=== PATIENT | female | born 1980 | race Caucasian/White ===

== ENCOUNTER → 2017-01-18 | Outpatient (CLI) | payer OTHER ==
--- NOTE | 2017-01-18 16:24 | KCIC ---
Clinical Indication: Discrepancy in size and dates. Technique: Study is dated January 18, 2017. No comparison study is available. Transabdominal imaging was performed. No comparison for this is available. Findings: There is a single intrauterine gestation in vertex presentation. The placenta is posterior in location and extends within a centimeter of the internal cervical os. Cervix is long and closed. CARLOS measured 12.8 cm. This value is within normal limits. Biometrical data is as follows: BPD = 4.60 cm, with a corresponding gestational age of 19 weeks 6 days. HC = 17.49 cm, with a corresponding gestational age of 20 weeks 0 days. AC = 15.00 cm, with a corresponding gestational age of 20 weeks 2 days. FL = 3.29 cm, with a corresponding gestational age of 20 weeks 2 days. Ratio of head circumference to abdominal circumference is 1.17. Cephalic index is 75 percent. Overall, the estimated sonographic gestational age is 20 weeks 1 day for an estimated date of delivery of June 06, 2017. Estimated weight is 340 g. survey was performed. A four chamber heart is identified with positive cardiac activity. The estimated heart rate is 157 beats per minute. There is a three-vessel cord with cord insertion visualized. stomach and urinary bladder are identified. Both kidneys are seen. Limited intracranial evaluation is within normal limits. IMPRESSION: 1. Single intrauterine gestation with estimated sonographic gestational age of 20 weeks 1 day. 2. Low-lying placenta within a centimeter of the internal cervical os, recommend short-term follow-up to document migration away from the internal cervical os. Electronically signed by: Boo Trejo MD (01/18/2017 4:21 PM) [id number]
== END | disposition home or self-care (01) ==
LOC: KCIC US 15:18
PROVIDERS: ATTEND Obstetrics & Gynecology
DX: O09.522 Supervision of elderly multigravida, second trimester (principal); Z3A.20 20 weeks gestation of pregnancy
CPT/HCPCS: 76805

== ENCOUNTER → 2017-03-28 | Outpatient (CLI) | payer OTHER ==
--- NOTE | 2017-03-28 15:19 | KCIC ---
PREG MORE THAN OR EQ TO 14 WKS History: Low lying placenta Comparison: January 18, 2017 Findings: Multiple transabdominal sonographic images of the uterus are submitted. There is a single intrauterine fetus in breech presentation. Placental margin is somewhat difficult to visualize although appears to be low-lying more posteriorly, estimated at 1.1 cm from the cervical os on the transvaginal images. Placenta extends laterally. Amniotic fluid volume is within normal limits, estimated CARLOS 15.8 cm. movement was noted by the technologist. There is demonstrable cardiac activity 165 bpm. Cervix measured 3.6 cm. Biometry data are as follows: Biparietal diameter 7.67 cm corresponds with 30 weeks 5 days, 63rd percentile Head circumference 28.75 cm corresponds with 31 weeks 4 days, 62nd percentile Abdominal circumference 27.43 cm corresponds with 31 weeks 4 days, 85th percentile Femur length 5.94 cm corresponds with 31 weeks 0 days, 63rd percentile Estimated weight 1736 g +/- 237 g, 63rd percentile Adjusted ultrasound age 31 weeks 2 days with estimated delivery date of 05/28/2017. LMP age 30 weeks 0 days with estimated delivery date of 06/06/2017. Maternal adnexal structures are not demonstrated. Impression: 1. There is again low lying placenta with margin about 1 cm from the cervical os. 2. There is breech presentation of single intrauterine fetus. Electronically signed by: Og Sagastume MD (03/28/2017 3:15 PM) [facility] [email or web address]
== END | disposition home or self-care (01) ==
LOC: KCIC US 07:47
PROVIDERS: ATTEND Obstetrics & Gynecology
DX: O44.43 Low lying placenta NOS or without hemorrhage, third trimester (principal); O32.1XX0 Maternal care for breech presentation, not applicable or unspecified; Z3A.31 31 weeks gestation of pregnancy
CPT/HCPCS: 76805